=== PATIENT | female | born 1950 | race Caucasian/White ===

== ENCOUNTER 2020-07-13 20:46 | Emergency (ER) | payer MEDICARE ==
[2020-07-13] MEDS ORDERED: METOCLOPRAMIDE 5 MG/ML 2 ML VIAL IVP STA (21:37)
[2020-07-13] MEDS ORDERED: MECLIZINE 12.5 MG TAB PO STA (21:37)
[2020-07-13 21:50] VITALS: RESP 18
--- NOTE | 2020-07-13 21:51 | ED ---
General Adult HPI - General Chief complaint: Dizziness Stated complaint: Dizziness, Vomiting Time Seen by Provider: 07/13/20 20:58 Source: patient, EMS Mode of arrival: EMS - History of Present Illness Initial comments: Dictation was produced using [employer] dictation software. please excuse any grammatical, word or spelling errors. This patient was cared for during a federal and state declared state of emergency secondary to Covid 19 Chief Complaint: 69-year-old female presents today with dizziness History of Present Illness: 69-year-old female presents today with nausea, dizziness. Patient has a history of vertigo. Reports that her symptoms occurred acutely at approximately 7 PM. She also complains associated palpitations. Patient has history of vertigo. Been several months since she had an vertigo attack. Patient feels very nauseated but hasn't had any vomiting. She states her symptoms are worse with standing as opposed to lying down. Her symptoms do go away with rest. She's had multiple small bowel movements. Patient also feels as though she does have some mild chest discomfort. She denies that it feels like pain. No radiation to the shoulders or jaw. No diaphoresis. I worse with deep inspiration. The ROS documented in this emergency department record has been reviewed and confirmed by me. Those systems with pertinent positive or negative responses have been documented in the HPI. All other systems are other negative and/or noncontributory. PHYSICAL EXAM: General Impression: Alert and oriented x3, not in acute distress HEENT: Normocephalic atraumatic, extra-ocular movements intact, pupils equal and reactive to light bilaterally, mucous membranes moist. Cardiovascular: Heart regular rate and rhythm Chest: Able to complete full sentences, no retractions, no tachypnea Abdomen: abdomen soft, non-tender, non-distended, no organomegaly Musculoskeletal: Pulses present and equal in all extremities, no peripheral ed sesar Motor: no focal deficits noted Neurological: CN II-XII grossly intact, no focal motor or sensory deficits noted, no drift to the extremities, no direction she denies nystagmus, right going nystagmus with fast phase to the right with a rightward gaze. Negative test askew. Patient is able to stand. She does not have any extremity deficits. She states that her symptoms improve when she closes her eyes. Skin: Intact with no visualized rashes Psych: Normal affect and mood ED course: -year-old female presents today with clinical presentation consistent with vertigo. [vital signs] Laboratory evaluation obtained. CBC shows some lymphocytopenia. Patient treated with intravenous fluids, Antivert and Reglan. Metabolic panel is negative. Patient reevaluated bedside is dramatically improved after Antivert and Reglan. She feels much better she is able to stand without, occasions and she is able to ambulate. Patient is agreeable to discharge. Patient given referral to ENT given outpatient prescription for Antivert. EKG interpretation: Ventricular rate 56, sinus bradycardia,. Interval 164, QRS 80, QTC 484. No PA prolongation, no QTC prolongation, no ST or T-wave changes noted. Overall, this EKG is unremarkable - Related Data Previous Rx's Medication Instructions Recorded Meclizine [Antivert] 25 mg PO TID PRN #15 tab 07/13/20 Allergies Allergy/AdvReac Type Severity Reaction Status Date / Time No Known Allergies Allergy Verified 07/13/20 21:51 Review of Systems ROS Statement: Those systems with pertinent positive or pertinent negative responses have been documented in the HPI. ROS Other: All systems not noted in ROS Statement are negative. Past Medical History Past Medical History: Hyperlipidemia, Hypertension, Thyroid Disorder Additional Past Medical History / Comment(s): hyperthyroidism History of Any Multi-Drug Resistant Organisms: None Reported Past Surgical History: Hysterectomy, Tonsillectomy Past Psychological History: No Psychological Hx Reported Smoking Status: Never smoker Past Alcohol Use History: None Reported Past Drug Use History: None Reported Course Vital Signs 07/13/20 07/13/20 20:48 21:47 Temperature 97.5 F L Pulse Rate 64 Respiratory 22 18 Rate Blood Pressure 143/74 O2 Sat by Pulse 99 Oximetry Medical Decision Making - Lab Data Result diagrams: 07/13/20 21:41 07/13/20 21:41 Lab Results 07/13/20 07/13/20 07/13/20 Range/Units 21:41 21:41 21:41 WBC 8.8 (3.8-10.6) k/uL RBC 3.87 (3.80-5.40) m/uL Hgb 12.5 (11.4-16.0) gm/dL Hct 35.8 (34.0-46.0) % MCV 92.6 (80.0-100.0) fL MCH 32.4 (25.0-35.0) pg MCHC 35.0 (31.0-37.0) g/dL RDW 12.6 (11.5-15.5) % Plt Count 191 (150-450) k/uL MPV 7.5 Neutrophils % 86 % Lymphocytes % 7 % Monocytes % 5 % Eosinophils % 1 % Basophils % 0 % Neutrophils # 7.5 (1.3-7.7) k/uL Lymphocytes # 0.6 L (1.0-4.8) k/uL Monocytes # 0.4 (0-1.0) k/uL Eosinophils # 0.1 (0-0.7) k/uL Basophils # 0.0 (0-0.2) k/uL Sodium 137 (137-145) mmol/L Potassium 4.0 (3.5-5.1) mmol/L Chloride 107 (98-107) mmol/L Carbon Dioxide 23 (22-30) mmol/L Anion Gap 7 mmol/L BUN 17 (7-17) mg/dL Creatinine 0.72 (0.52-1.04) mg/dL Est GFR (CKD-EPI)AfAm >90 (>60 ml/min/1.73 sqM) Est GFR (CKD-EPI)NonAf 86 (>60 ml/min/1.73 sqM) Glucose 126 H (74-99) mg/dL Calcium 8.9 (8.4-10.2) mg/dL Magnesium 1.7 (1.6-2.3) mg/dL Total Bilirubin 0.4 (0.2-1.3) mg/dL AST 28 (14-36) U/L ALT 18 (4-34) U/L Alkaline Phosphatase 111 (38-126) U/L Troponin I <0.012 (0.000-0.034) ng/mL Total Protein 7.0 (6.3-8.2) g/dL Albumin 4.0 (3.5-5.0) g/dL Disposition Clinical Impression: Vertigo Disposition: HOME SELF-CARE Condition: Good Instructions (If sedation given, give patient instructions): Dizziness (ED), Vertigo (ED) Prescriptions: Meclizine [Antivert] 25 mg PO TID PRN #15 tab PRN Reason: dizziness Is patient prescribed a controlled substance at d/c from ED?: No Referrals: Magdiel Alas MD [STAFF PHYSICIAN] - 1-2 days Time of Disposition: 22:32
[2020-07-13 21:57] LABS: Basophils % (A) 0 %; Eosinophils # (A) 0.1 k/uL (0-0.7); Eosinophils % (A) 1 %; HCT 35.8 % (34.0-46.0); HGB 12.5 gm/dL (11.4-16.0); Lymphocytes # (A) 0.6 k/uL (1.0-4.8); Lymphocytes % (A) 7 %; MCH 32.4 pg (25.0-35.0); MCV 92.6 fL (80.0-100.0); Mean Platelet Volume 7.5; Monocytes # (A) 0.4 k/uL (0-1.0); Monocytes % (A) 5 %; Neutrophils # (A) 7.5 k/uL (1.3-7.7); Neutrophils % (A) 86 %; Platelet Count 191 k/uL (150-450); RBC 3.87 m/uL (3.80-5.40); RDW 12.6 % (11.5-15.5); WBC 8.8 k/uL (3.8-10.6)
[2020-07-13 22:08] LABS: ALT 18 U/L (4-34); AST 28 U/L (14-36); African American GFR (CKD) >90 (>60 ml/min/1.73 sqM); Alkaline Phosphatase 111 U/L (38-126); Anion Gap 7 mmol/L; Blood Urea Nitrogen 17 mg/dL (7-17); Calcium 8.9 mg/dL (8.4-10.2); Carbon Dioxide 23 mmol/L (22-30); Chloride 107 mmol/L (98-107); Glucose 126 mg/dL (74-99); Magnesium 1.7 mg/dL (1.6-2.3); Non-African American GFR(CKD) 86 (>60 ml/min/1.73 sqM); Sodium 137 mmol/L (137-145); Total Bilirubin 0.4 mg/dL (0.2-1.3)
--- NOTE | 2020-07-13 22:10 | XR ---
EXAMINATION TYPE: XR chest 1V portable DATE OF EXAM: 07/13/2020 COMPARISON: NONE HISTORY: Chest pain. TECHNIQUE: Single frontal view of the chest is obtained. FINDINGS: There is no focal air space opacity, pleural effusion, or pneumothorax seen. The cardiac silhouette size is within normal limits. The osseous structures are intact. IMPRESSION: No acute process.
[2020-07-13] MEDS ORDERED: SODIUM CHLORIDE 0.9% 1,000 ML IV STA (22:25)
[2020-07-13 23:03] VITALS: BP 140/66; PULSE 68; TEMP 97.6
== END 2020-07-13 23:02 | disposition home or self-care (01) ==
LOC: EC 20:46
DX: R42 Dizziness and giddiness (principal); R11.2 Nausea with vomiting, unspecified; R00.1 Bradycardia, unspecified; D72.810 Lymphocytopenia; R07.89 Other chest pain
CPT/HCPCS: 36415; 93005; 80053; 83735; 84484; 85025; 71045; 99285; 96374; J2765